=== PATIENT | female | born 1990 | race Caucasian/White ===

== ENCOUNTER 2019-10-25 19:08 | Observation (INO) | payer OTHER, SELFPAY ==
--- NOTE | 2019-10-25 19:00 | PC.NURSE ---
Report called to Sujata in OB. pt taken directly to ob via wc.
[2019-10-25 19:14] VITALS: TEMP 36.9
[2019-10-25 19:15] VITALS: BP 125/63; PULSE 90
[2019-10-25 19:44] LABS: Add Urine Microscopic? YES; Appearance Urine Cloudy (Clear); Bacteria Urine Trace /hpf; Bilirubin Urine Negative (Negative); Blood Urine Negative (Negative); Color Urine Yellow (Yellow); Glucose Urine UA Negative (Negative); Ketones Urine Negative (Negative); Leukocyte Esterase Ur 1+ LEU/UL (Negative); Mucus Urine Rare /lpf; Nitrate Urine Negative (Negative); Protein Urine Negative (Negative); RBC Urine 0-2 /hpf (0-2); Specific Grav Ur 1.011 (1.001-1.035); Squamous Epithelial Cell Urine Many /hpf (Few); Urobilinogen Urine Negative mg/dL (<2.0)
--- NOTE | 2019-11-03 01:49 | PM.OBTRLD ---
OB - Triage/Final Diagnosis Evaluation Laboratory results: Laboratory Tests 10/25/19 19:26 Urine Color Yellow Urine Appearance Cloudy H Urine pH 6.0 Ur Specific [place] 1.011 Urine Protein Negative Urine Glucose (UA) Negative Urine Ketones Negative Ur Blood (Man) Negative Urine Nitrate Negative Urine Bilirubin Negative Urine Urobilinogen Negative Leukocyte Esterase Rfl 1+ H Urine RBC 0-2 Urine WBC 10-15 H Ur Squamous Epith Cells Many H Urine Bacteria Trace Urine Mucus Rare Final Diagnosis (1) Abdominal cramping affecting : Code(s): O26.899 - Other specified related conditions, unspecified trimester; R10.9 - Unspecified abdominal pain Status: Acute
== END 2019-10-25 20:25 | disposition home or self-care (01) ==
PROVIDERS: Admitting Provider Student in an Organized Health Care Education/Training Program; Visit Provider Student in an Organized Health Care Education/Training Program
DX: O26.893 Other specified pregnancy related conditions, third trimester (principal); R10.9 Unspecified abdominal pain; Z3A.28 28 weeks gestation of pregnancy
CPT/HCPCS: 81001; 87086; 87088; G0378; G0379

== ENCOUNTER 2019-11-15 09:49 | Outpatient (RCR) | payer OTHER, SELFPAY ==
--- NOTE | ~2019-11-15 | US_ITS ---
EXAMINATION: US OB limited w BPP DATE: 11/15/2019 11:07 INDICATION: Decreased movement. Third trimester. TECHNIQUE: Real-time pelvic ultrasound was performed. COMPARISON: None. FINDINGS: There is a single living fetus in vertex presentation. The placenta is anterior. heart rate is 143 beats per minute (bpm). The amniotic fluid index is 20.3 cm, which is normal. Biophysical profile performed by the technologist: breathing (30 sec sustained breathing in 30 minutes): 2 out of 2 movement (3 gross body movements in 30 minutes): 2 out of 2 tone (one episode of graueyc-juuwpoiaa-jmgqowe limb movement): 2 out of 2 Amniotic fluid pocket (2 cm): 2 out of 2 Total score: 8 out of 8 IMPRESSION: 1. Single living fetus in vertex presentation. 2. Biophysical profile 8 out of 8. Reviewed, dictated and finalized at location A. 7 DEVELOPER
[2019-11-15 10:45] VITALS: BP 105/55; PULSE 79
== END 2020-02-13 23:59 | disposition home or self-care (01) ==
LOC: ANHOBOP 09:49
PROVIDERS: Visit Provider Obstetrics & Gynecology
DX: O36.8130 Decreased fetal movements, third trimester, not applicable or unspecified (principal); Z3A.31 31 weeks gestation of pregnancy
CPT/HCPCS: 59025; 76815; 76819

== ENCOUNTER 2020-01-03 11:11 | Outpatient (CLI) | payer OTHER, SELFPAY ==
--- NOTE | ~2020-01-03 | US_ITS ---
EXAMINATION: US OB follow up DATE: 01/03/2020 11:49 INDICATION: Size greater than dates during third trimester TECHNIQUE: Real-time ultrasound of the pelvis was performed. The interpreting radiologist was not pre sent for the study. COMPARISON: None. FINDINGS: There is a single living fetus in breech presentation. The placenta is anterior. card iac activity and movement are noted. heart rate is 124 beats per minute (bpm). The amniot ic fluid index is 24.1 cm which is normal. The following biometric data were obtained: Biparietal diameter (BPD): 9.3 cm; head circumference (HC): 33.3 cm; abdominal circumference (AC): 33 .7 cm; femur length (FL): 7.3 cm. These measurements are concordant. Estimated weight is 3274 g +/- 491 g, which correlates with the 74th percentile when 01/24/2020 is used as estimated date of delivery. As single measurements, these parameters are each equal to the following estimated gestational ages w ith ranges of +/- 2 standard deviations: BPD: 38 weeks 0 days +/- 3 weeks 1 days. HC: 38 weeks 1 days +/- 2 weeks 5 days. AC: 37 weeks 4 days +/- 3 weeks 0 days. FL: 37 weeks 3 days +/- 3 weeks 1 days. estimated gestational age based solely on measurements from this exam is 37 weeks 6 days +/- 2 weeks 5 days. IMPRESSION: 1. Single living fetus in breech presentation. 2. Estimated weight is 3274 g +/- 491 g, which correlates with the 74th percentile when 01/24/20 20 is used as estimated date of delivery. 3. Normal amniotic fluid index. Reviewed, dictated and finalized at location A. IMPRESSION: 1. Single living fetus in breech presentation. 2. Estimated weight is 3274 g +/- 491 g, which correlates with the 74th p ercentile when 01/24/2020 is used as estimated date of delivery. 3. Normal amniotic fluid index.
[2020-01-03 11:58] LABS: Basophils Percent Auto 0.2 % (0.2-1.2); Eosinophils Absolute Auto 0.2 K/mm3 (0-0.3); Eosinophils Percent Auto 1.6 % (0-4.4); Hemoglobin 10.5 g/dL (12.0-15.0); Immature Granulocyte Absolute 0.05 K/mm3 (0.00-0.031); Immature Granulocyte Percent A 0.5 % (0-0.5); Lymphocytes Absolute Auto 2.01 K/mm3 (0.9-3.2); Lymphocytes Percent Auto 20.8 % (18.3-44.2); Mean Corpuscular HGB Conc 32.8 g/dl (32-36); Mean Corpuscular Hemoglobin 31.9 pg (26-34); Mean Corpuscular Volume 97.3 fl (80-100); Mean Platelet Volume 11.3 fl (7.4-10.4); Monocytes Absolute Auto 0.8 K/mm3 (0.1-0.6); Monocytes Percent Auto 7.9 % (2.6-8.5); Neutrophils Absolute Auto 6.7 K/mm3 (1.3-6.7); Platelet Count Result 174 k/mm3 (150-375); Red Blood Count 3.29 M/mm3 (4.2-5.4); Red Cell Distribution Width 13.6 % (11.5-14.5); White Blood Count 9.7 K/mm3 (4.5-10.0)
[2020-01-03 12:51] LABS: HIV 1/2 Ab P24 Ag Result Negative (Negative)
[2020-01-04 10:10] LABS: Rapid Plasma Reagin Non-Reactive (NonReactive)
== END 2020-01-03 11:12 | disposition home or self-care (01) ==
LOC: ANHIMG 11:18
PROVIDERS: Visit Provider Obstetrics & Gynecology
DX: Z34.90 Encounter for supervision of normal pregnancy, unspecified, unspecified trimester (principal)
CPT/HCPCS: 36415; 76816; 85025; 86592; 86703; G0432

== ENCOUNTER 2020-01-17 18:54 | Inpatient (IN) | payer OTHER, SELFPAY ==
[2020-01-17] VITALS (11 sets, daily range): BP systolic 92–129; BP diastolic 45–70; PULSE 97–110; TEMP 36.7; BMI 34.1
--- NOTE | 2020-01-17 19:32 | LDADM ---
This patient, Gwen Kincaid, was admitted to Labor/Delivery/Recovery 108 on 01/17/20 at 18:54. Plans for labor, pain management and were discussed with patient. Patient/family oriented to hospital policies and general routines including ID bracelet, bed and alarms, visiting hours, pain management, procedures, bathroom and other care routines, personal items, smoking policy, room service/diet and guest tray routines, security routines, and visiting hours. Patient/Family are encouraged to report perceived risks to care and to ask questions if they do not understand what they are told or what they should do. See OBIX for further documentation.
[2020-01-17 19:33] LABS: Basophils Percent Auto 0.1 % (0.2-1.2); Eosinophils Absolute Auto 0.2 K/mm3 (0-0.3); Eosinophils Percent Auto 1.8 % (0-4.4); Hematocrit 30.8 % (37.0-47.0); Hemoglobin 10.2 g/dL (12.0-15.0); Immature Granulocyte Absolute 0.04 K/mm3 (0.00-0.031); Immature Granulocyte Percent A 0.4 % (0-0.5); Lymphocytes Absolute Auto 2.07 K/mm3 (0.9-3.2); Lymphocytes Percent Auto 21.9 % (18.3-44.2); Mean Corpuscular HGB Conc 33.1 g/dl (32-36); Mean Corpuscular Hemoglobin 31.9 pg (26-34); Mean Corpuscular Volume 96.3 fl (80-100); Mean Platelet Volume 11.6 fl (7.4-10.4); Monocytes Absolute Auto 0.7 K/mm3 (0.1-0.6); Monocytes Percent Auto 7.2 % (2.6-8.5); Neutrophils Absolute Auto 6.5 K/mm3 (1.3-6.7); Neutrophils Percent Auto 68.6 % (45.5-73.1); Platelet Count Result 176 k/mm3 (150-375); Red Cell Distribution Width 13.8 % (11.5-14.5); White Blood Count 9.5 K/mm3 (4.5-10.0)
[2020-01-17] MEDS: DINOPROSTONE 10 MG VAG INSERT VAGINAL (19:43)
[2020-01-17 20:25] LABS: HIV 1/2 Ab P24 Ag Result Negative (Negative)
--- NOTE | 2020-01-17 21:19 | WPDANESEPP ---
Anes - Eval Pre Procedure Procedure: labor epidural Date/Time: 01/17/20 21:19 Surgeon: labor pain Pre Op Diagnosis: IOL Patient Data Age: 29 Gender: F Height: 1.55 m Weight: 82 kg Last Vital Signs Temp 36.7 C 01/17/20 19:18 Pulse 99 01/17/20 21:14 BP 99/45 L 01/17/20 21:14 Allergies Allergy/AdvReac Type Severity Reaction Status Date / Time HYDROCODONE BIT AdvReac Unknown Nausea and Uncoded 08/18/14 09:37 Vomiting Home Medications Medication Instructions Recorded Confirmed Type docosahexaenoic acid 200 mg capsule 1 mg PO DAILY 07/19/19 01/17/20 History ferrous sulfate 325 mg (65 mg 325 mg PO DAILY #30 tablet 10/22/19 01/17/20 Rx iron) tablet Laboratory Tests 01/17/20 01/17/20 01/17/20 19:28 19:28 19:28 WBC 9.5 K/mm3 K/mm3 (4.5-10.0) RBC 3.20 M/mm3 L M/mm3 (4.2-5.4) Hgb 10.2 g/dL L g/dL (12.0-15.0) Hct 30.8 % L % (37.0-47.0) MCV 96.3 fl fl (80-100) MCH 31.9 pg pg (26-34) MCHC 33.1 g/dl g/dl (32-36) RDW 13.8 % % (11.5-14.5) Plt Count 176 k/mm3 k/mm3 (150-375) MPV 11.6 fl H fl (7.4-10.4) Immature Gran % (Auto) 0.4 % % (0-0.5) Neut % (Auto) 68.6 % % (45.5-73.1) Lymph % (Auto) 21.9 % % (18.3-44.2) [place] % (Auto) 7.2 % % (2.6-8.5) Eos % (Auto) 1.8 % % (0-4.4) Baso % (Auto) 0.1 % L % (0.2-1.2) Lymph # (Auto) 2.07 K/mm3 K/mm3 (0.9-3.2) [place] # (Auto) 0.7 K/mm3 H K/mm3 (0.1-0.6) Eos # (Auto) 0.2 K/mm3 K/mm3 (0-0.3) Baso # (Auto) 0.0 K/mm3 K/mm3 (0.0-0.1) Abs Immat Gran (auto) 0.04 K/mm3 H K/mm3 (0.00-0.031) Absolute Neuts (auto) 6.5 K/mm3 K/mm3 (1.3-6.7) Absolute Nucleated RBC 0.0 K/mm3 K/mm3 (0.0-0.012) Nucleated RBC % 0.0 % % (0.0-0.2) RPR Pending HIV 1&2 Ab/P24 Ag 4thGn Negative (Negative) Blood Type Antibody Screen 01/17/20 19:28 WBC RBC Hgb Hct MCV MCH MCHC RDW Plt Count MPV Immature Gran % (Auto) Neut % (Auto) Lymph % (Auto) [place] % (Auto) Eos % (Auto) Baso % (Auto) Lymph # (Auto) [place] # (Auto) Eos # (Auto) Baso # (Auto) Abs Immat Gran (auto) Absolute Neuts (auto) Absolute Nucleated RBC Nucleated RBC % RPR HIV 1&2 Ab/P24 Ag 4thGn Blood Type Pending Antibody Screen Pending Patient hx anesthesia problems: none Family hx anesthesia problems: none PMFSH Social History Social History Smoking packs per day: 0.5 Smoking cigarettes per day: 10.0 Years smoked: 8 Smoking pack-years: 4.00 Smoking status: Never smoker Tobacco type: cigarettes Second hand tobacco smoke exposure: Yes Alcohol intake: former Substance use: former Substance use type: marijuana Last use: When she found out she was Gender identity (if verbalized by the patient): Female Spiritual care concerns: No Exam Day of Procedure 01/17/20 21:19
[2020-01-17] MEDS: ZOLPIDEM TARTRATE 5 MG TABLET PO (21:41)
[2020-01-18] VITALS (116 sets, daily range): BP systolic 76–136; BP diastolic 44–89; PULSE 65–119; TEMP 36.7–37; O2SAT 93–100
[2020-01-18 06:58] LABS: Rapid Plasma Reagin Non-Reactive (NonReactive)
[2020-01-18] MEDS: OXYTOCIN 30 UNITS/NS 500 ML 30 UNITS/500 ML BAG IV CONT (08:43)
[2020-01-18] MEDS: LACTATED RINGERS 1,000 ML 125 ML IV CONT ×5 (08:43→23:43)
--- NOTE | 2020-01-18 13:12 | PM.IMHP ---
H&P: HPI History of Present Illness Chief complaint: IOL Narrative: Gwen Kincaid is a 29 year old female at 39 weeks by LMP 04/19/19 with an EDC 01/24/20. c/w U/S on 06/23/19 at 9 weeks. course signficant for unstable lie, fetus was breech last week and cephalic yesterday. course also signficant for tobacco use. She did decrease to approximately 5 cigs/day. History of marijuana use in past not during .UDS neg in . Anemia of Labs: A+, TSH-nl, UDS-neg,CF-neg, RPR-nr,RUB-Im, VitD 30, Hepbsag-neg, Hemoglobinopathy screen normal, HepCab-neg, GC/CHL-neg, 1 hr-111, third tri hiv/rpr neg, third trimester h/h1 Review of Systems Review of Systems: All systems reviewed & are unremarkable except as noted in HPI and below Constitutional: Constitutional: Reports no additional constitutional complaints and Denies headache(s) Eyes: Eyes: Denies spots in vision ENT: Reports system reviewed and no additional complaints, except as documented and Denies headache(s) Cardiovascular: Cardiovascular: Denies chest pain and Denies dyspnea Respiratory: Respiratory: Denies dyspnea Gastrointestinal: Gastrointestinal: Reports no additional gastrointestinal complaints Genitourinary: Genitourinary: Reports amenorrhea Musculoskeletal: Musculoskeletal: Reports no additional musculoskeletal complaints Integumentary/Breasts: Skin/Breast: Denies breast mass and Denies rash Neurologic: Denies headache(s) Psychiatric: Psychiatric: Reports no additional psychiatric complaints [facility] Past Medical History Medical History (Updated 01/18/20 @ 13:13 by Kendall Somers MD) Elective induction of labor planned Encounter for supervision of other normal , third trimester Normal in multigravida in second trimester Family History Family History Grandparent Carcinoma of colon Social History Social History Smoking packs per day: 0.5 Smoking cigarettes per day: 10.0 Years smoked: 8 Smoking pack-years: 4.00 Smoking status: Never smoker Tobacco type: cigarettes Second hand tobacco smoke exposure: Yes Alcohol intake: former Substance use: former Substance use type: marijuana Last use: When she found out she was Gender identity (if verbalized by the patient): Female Spiritual care concerns: No Meds Home Medications and Allergies Home Medications Medication Instructions Recorded Confirmed Type docosahexaenoic acid 200 mg capsule 1 mg PO DAILY 07/19/19 01/17/20 History ferrous sulfate 325 mg (65 mg 325 mg PO DAILY #30 tablet 10/22/19 01/17/20 Rx iron) tablet Allergies Allergy/AdvReac Type Severity Reaction Status Date / Time HYDROCODONE BIT AdvReac Unknown Nausea and Uncoded 08/18/14 09:37 Vomiting Vital Signs Vital Signs - 24 hr 01/17/20 19:18 01/17/20 19:22 01/17/20 19:29 Temperature 98.1 F Pulse Rate 101 H 99 Blood Pressure 129/68 115/63 01/17/20 19:44 01/17/20 19:59 01/17/20 20:15 Temperature Pulse Rate 103 H 100 97 Blood Pressure 122/70 113/68 98/53 L 01/17/20 20:29 01/17/20 20:45 01/17/20 20:59 Temperature Pulse Rate 106 H 110 H 102 H Blood Pressure 98/57 L 94/52 L 99/45 L 01/17/20 21:14 01/17/20 21:29 01/18/20 01:05 Temperature Pulse Rate 99 107 H 119 H Blood Pressure 99/45 L 92/59 L 116/59 L 01/18/20 01:15 01/18/20 04:30 01/18/20 05:30 Temperature 98.4 F Pulse Rate 106 H 102 H Blood Pressure 96/80 L 115/55 L 01/18/20 05:31 01/18/20 05:45 01/18/20 05:53 Temperature Pulse Rate 86 78 99 Blood Pressure 102/48 L 108/49 L 118/60 01/18/20 06:00 01/18/20 06:15 01/18/20 06:30 Temperature Pulse Rate 80 88 80 Blood Pressure 121/66 98/61 L 120/76 01/18/20 06:45 01/18/20 07:00 01/18/20 07:15 Temperature Pulse Rate 82 88 84 Blood Press
--- NOTE | 2020-01-18 13:14 | PM.OBPNVD ---
OB - PN: Subj Subjective Date/time seen: 01/18/20 0820 FHt 130 Cat 1 Cervix 1.5/50/high Bedside ultrasound confirmed cephalic. Start Pitocin. OB - PN: Obj Data Labs CBC & Chem 7: 01/17/20 19:28 Labs: Laboratory Results - last 24 hr 01/17/20 01/17/20 01/17/20 19:28 19:28 19:28 WBC 9.5 RBC 3.20 L Hgb 10.2 L Hct 30.8 L MCV 96.3 MCH 31.9 MCHC 33.1 RDW 13.8 Plt Count 176 MPV 11.6 H Immature Gran % (Auto) 0.4 Neut % (Auto) 68.6 Lymph % (Auto) 21.9 [place] % (Auto) 7.2 Eos % (Auto) 1.8 Baso % (Auto) 0.1 L Lymph # (Auto) 2.07 [place] # (Auto) 0.7 H Eos # (Auto) 0.2 Baso # (Auto) 0.0 Abs Immat Gran (auto) 0.04 H Absolute Neuts (auto) 6.5 Absolute Nucleated RBC 0.0 Nucleated RBC % 0.0 RPR Non-reactive HIV 1&2 Ab/P24 Ag 4thGn Negative Blood Type Antibody Screen 01/17/20 19:28 WBC RBC Hgb Hct MCV MCH MCHC RDW Plt Count MPV Immature Gran % (Auto) Neut % (Auto) Lymph % (Auto) [place] % (Auto) Eos % (Auto) Baso % (Auto) Lymph # (Auto) [place] # (Auto) Eos # (Auto) Baso # (Auto) Abs Immat Gran (auto) Absolute Neuts (auto) Absolute Nucleated RBC Nucleated RBC % RPR HIV 1&2 Ab/P24 Ag 4thGn Blood Type A Positive Antibody Screen Negative OB - PN A/P Time Spent With Patient Time: Total time spent is greater than 50% in coordination of care (as documented) at patient's floor/unit and/or counseling patient:
--- NOTE | 2020-01-18 13:16 | PM.OBPNVD ---
OB - PN: Subj Subjective Date/time seen: 01/18/20 13:16 FHT 145 Cat 1 Cervix 2/50/-2. Ctx feeling more uncomfortable, ctx q 2-3. Pt did not tolerate attempt AROM. Continue Pitocin induction. OB - PN: Obj Data Labs CBC & Chem 7: 01/17/20 19:28 Labs: Laboratory Results - last 24 hr 01/17/20 01/17/20 01/17/20 19:28 19:28 19:28 WBC 9.5 RBC 3.20 L Hgb 10.2 L Hct 30.8 L MCV 96.3 MCH 31.9 MCHC 33.1 RDW 13.8 Plt Count 176 MPV 11.6 H Immature Gran % (Auto) 0.4 Neut % (Auto) 68.6 Lymph % (Auto) 21.9 [place] % (Auto) 7.2 Eos % (Auto) 1.8 Baso % (Auto) 0.1 L Lymph # (Auto) 2.07 [place] # (Auto) 0.7 H Eos # (Auto) 0.2 Baso # (Auto) 0.0 Abs Immat Gran (auto) 0.04 H Absolute Neuts (auto) 6.5 Absolute Nucleated RBC 0.0 Nucleated RBC % 0.0 RPR Non-reactive HIV 1&2 Ab/P24 Ag 4thGn Negative Blood Type Antibody Screen 01/17/20 19:28 WBC RBC Hgb Hct MCV MCH MCHC RDW Plt Count MPV Immature Gran % (Auto) Neut % (Auto) Lymph % (Auto) [place] % (Auto) Eos % (Auto) Baso % (Auto) Lymph # (Auto) [place] # (Auto) Eos # (Auto) Baso # (Auto) Abs Immat Gran (auto) Absolute Neuts (auto) Absolute Nucleated RBC Nucleated RBC % RPR HIV 1&2 Ab/P24 Ag 4thGn Blood Type A Positive Antibody Screen Negative OB - PN A/P Time Spent With Patient Time: Total time spent is greater than 50% in coordination of care (as documented) at patient's floor/unit and/or counseling patient:
--- NOTE | 2020-01-18 21:16 | PM.OBPNVD ---
OB - PN: Subj Subjective Date/time seen: 01/18/20 21:16 fht 130, Cat 1, cervix 3/60/-2, AROM large amount of clear fluid Continue Pitocin. OB - PN: Obj Data Labs CBC & Chem 7: 01/17/20 19:28 Labs: Laboratory Results - last 24 hr 01/17/20 01/17/20 19:28 19:28 RPR Non-reactive Blood Type A Positive Antibody Screen Negative OB - PN A/P Time Spent With Patient Time: Total time spent is greater than 50% in coordination of care (as documented) at patient's floor/unit and/or counseling patient:
[2020-01-19] VITALS (134 sets, daily range): BP systolic 91–139; BP diastolic 47–88; PULSE 64–127; RESP 18; TEMP 36.6–37.7; O2SAT 92–100
[2020-01-19] MEDS: ONDANSETRON INJ 4 MG/2 ML VIAL IV PUSH (06:30)
--- NOTE | 2020-01-19 07:30 | PM.OBPNVD ---
OB - PN: Subj Subjective Date/time seen: 01/19/20 07:30 Called for delivery at 644. Review of tracing showed, early decel since 539, cervix at that time 9/rim,-1, mild late decelerations since 609. Good variability present. Complete at 0658. OB - PN: Obj Data Labs CBC & Chem 7: 01/17/20 19:28 OB - PN A/P Time Spent With Patient Time: Total time spent is greater than 50% in coordination of care (as documented) at patient's floor/unit and/or counseling patient:
--- NOTE | 2020-01-19 07:34 | PM.OBPRVD ---
OB - Delivery Note Procedure Delivery date: 01/19/20 Procedure: Spontaneous vaginal delivery events: Labor Induction Intrapartal events: Deceleration Induction method: per misoprostol protocol and per pitocin protocol Delivery augmentation: rupture of membranes Delivery monitor: external FHT Route of delivery: Laceration description: None Specimen: Yes Estimated blood loss (mL): 150 Anesthesia type: Epidural Disposition: floor Complications: None Narrative: Patient admitted for social induction. She also had unstable presentation. Tobacco abuse. She had cervidil on evening of 01/16. Pitocin was started morning of 01/17. She had rupture of membranes at approximately 0 clear. Large amount of clear fluid. She progressed into active labor. Labor course tracing Cat 1 until approximately 0615. Cat 2 with mild late decelerations repetitive. Position was changed and she was complete at 0658. She delivered a male at 0717. placed on maternal abdomen after tight nuchal cord surgically reduced. Infant then brought to warmer. Placenta delivered spontaneously and intact. No lacerations. Cord gases and cord blood obtained. Baby Date of : 01/19/20 Time of : 07:17 Weeks of gestation at delivery: 39 gender: Male Weight (pounds): 7 Weight (ounces): 2 presentation: vertex position: Right Occiput Anterior Placenta delivery description: Spontaneous cord vessel description: Tight and Reduced (surgically) score one minute: 7 score five minutes: 9
[2020-01-19] MEDS: IBUPROFEN 600 MG TABLET PO ×3 (08:54→21:16)
[2020-01-19] MEDS: BENZOCAINE 20% AER SPR (*SP) 56 GM CAN 1 SPRAY TOPICAL (08:54)
[2020-01-19] MEDS: WITCH HAZEL 40 PADS 1 PAD TOPICAL (08:54)
--- NOTE | 2020-01-19 10:35 | PC.NURSE ---
Patient transferred to post room # 287 per wheelchair. Support person present. Oriented to unit, room, information board, rooming in, admission packet and security measures. Patient verbalizes understanding.
[2020-01-20 05:33] LABS: Hematocrit 25.3 % (37.0-47.0); Hemoglobin 8.4 g/dL (12.0-15.0)
[2020-01-20 08:00] VITALS: BP 106/66; PULSE 77; RESP 18; TEMP 36.8
[2020-01-20] MEDS: IBUPROFEN 600 MG TABLET PO (08:27)
[2020-01-20] MEDS: POLYSACCHARIDE IRON COMPLEX 150 MG CAPSULE PO (08:28)
[2020-01-20] MEDS: DOCUSATE SODIUM 100 MG CAPSULE PO (08:28)
--- NOTE | 2020-01-20 09:37 | PC.NURSE ---
Patient was given the opportunity to view the discharge video Mother & Baby Care, The First Two Weeks and to ask questions. Patient declined viewing the video and has been given the mother/baby guide for home reference.
--- NOTE | 2020-01-20 09:37 | PC.NURSE ---
Self care and infant care discharge instructions given to pt. including follow up visit date and time. Pt. verbalized understanding. No questions or concerns voiced.
--- NOTE | 2020-01-20 11:27 | PM.OBPNVD ---
OB - PN: Subj Subjective Date/time seen: 01/20/20 11:27 No lightheadedness or dizziness. Patient comments: pain well controlled, tolerating diet and other (Decreasing lochia.) [place] baby status: doing well and nursing well OB - PN: Obj Data Labs CBC & Chem 7: 01/20/20 04:44 Labs: Laboratory Results - last 24 hr 01/20/20 04:44 Hgb 8.4 L Hct 25.3 L OB - PN A/P Plan day: 1 Plan: routine care Comments: Patient doing well. She desires to go home. Discharge precautions discussed. Time Spent With Patient Time: Total time spent is greater than 50% in coordination of care (as documented) at patient's floor/unit and/or counseling patient: Exam Psych: Affect: normal affect Other: Abd: fundus firm below umbilicus, nontender Perineum: healing Ext: nontender
[2020-01-21 10:04] VITALS: BP 117/74; PULSE 83; RESP 20; TEMP 36.9; O2SAT 99
--- NOTE | 2020-02-18 12:11 | PM.OBDSVD ---
DS: Admitting Diagnosis Admitting Diagnosis Admitting Diagnosis: Encounter for supervision of normal , unspecified, third trimester DS: Discharge Diagnosis Discharge Diagnosis (1) Elective induction of labor planned: Status: Acute OB - DS: Summary OB Procedures : None OB Procedures Intrapartum: Spontaneous Vag Delivery OB Procedures: : None Time Spent with Patient Time attestation: Total time spent providing and/or coordinating discharge services: Exam Psych: Affect: normal affect Other: Abd: fundus firm below umbilicus, nontender Perineum: healing Ext: nontender DS: Data Data Completed and Pending Completed studies during hospitalization: Pending at discharge 01/19/20 13:48 Surgical [PTH] Routine Discharge Plan Discharge Attending physician on discharge: Kendall Somers Discharging Clinician: Kendall Somers Patient Disposition: Home, Self-Care Activity: may shower and pelvic rest Diet: regular Discharge Instructions: Routine post vaginal delivery instructions. May take over the counter Ibuprofen or Tylenol for pain. Call for temperature >100.4, saturating more than one pad an hour, leg pain and redness. Take daily vitamin and take a daily iron supplement. Education: Mom and Baby Guide Given to: Mother Follow-Up: Call your delivering provider's office for an appointment to be seen in: 6 Weeks Mom and baby should come to the [facility] for the follow-up appointment. Appointment Date/Time: January 21, 2020 at 10:00 am What to expect at your follow-up visit: Blood Pressure Check Physical Assessment Call [phone] if you are unable to keep your appointment time. BREAST CARE: 1. Wear a snug supportive bra. Bottle Feeding: A. May apply ice packs EPISIOTOMY/PERINEAL CARE: 1. Until bleeding stops, use your rajendra bottle after urinating 2. Change your pad frequently throughout the day 3. You may take sitz baths several times a day (fill your bathtub with warm water and soak for 20 minutes.) Do NOT bathe in the water 4. No tub baths until seen by your physician - You may shower ACTIVITY: 1. Rest as much as possible. 2. Do not exercise or lift anything heavier than your baby (such as laundry or other children.) 3. Avoid stairs or driving as much as possible. 4. Do not put anything into the vagina. No douching, tampons, or sexual activity until seen by physician. NOTIFY PHYSICIAN IF YOU HAVE ANY QUESTIONS OR IF ANY OF THE FOLLOWING SYMPTOMS OCCUR: 2. If your vaginal bleeding becomes foul smelling. 3. If your vaginal bleeding becomes more heavy than a period or if your bleeding changes from pink to bright red. However, you may pass an occasional walnut-sized clot once or twice for the first week . 4. If you experience a sharp, shooting pain in you calves. 5. If you discover a hard, reddened area on your breast or if you experience flu-like symptoms. DIET: 1. Eat regular, well-balanced meals. 2. Drink plenty of fluids daily. If , drink to thirst. Stand Alone Forms: General Discharge Information Follow-up/Referrals: Kendall Somers MD [Physician] - 4 Weeks (Call for appointment.) Discharge Medications: Continued DHA 200 mg capsule 1 mg PO DAILY RF: 0 ferrous sulfate 325 mg (65 mg iron) tablet 325 mg PO DAILY Qty: 30 RF: 2 Date of admission: 01/17/20 18:54 Primary Care Provider: PH[facility]IC[facility] Admitting Provider: Kendall Somers Discharge Date/Time: 01/20/20 12:17 Attending physician on admission: Kendall Somers
== END 2020-01-20 12:17 | disposition home or self-care (01) | DRG 560 ==
LOC: ANHLDR 19:20 → ANHOB2 01-19 10:39
PROVIDERS: Admitting Provider Obstetrics & Gynecology; Visit Provider Obstetrics & Gynecology
DX: O32.0XX0 Maternal care for unstable lie, not applicable or unspecified (principal); Z37.0 Single live birth; Z3A.39 39 weeks gestation of pregnancy; O99.02 Anemia complicating childbirth; D64.9 Anemia, unspecified; O99.334 Smoking (tobacco) complicating childbirth; F17.210 Nicotine dependence, cigarettes, uncomplicated; O36.8330 Maternal care for abnormalities of the fetal heart rate or rhythm, third trimester, not applicable or unspecified; O69.1XX0 Labor and delivery complicated by cord around neck, with compression, not applicable or unspecified
CPT/HCPCS: 36415; 85014; 85018; 85025; 86592; 86703; 86850; 86900; 86901; 88307; A9270; G0432; J2405; J2590; J2795; J7120

== ENCOUNTER 2020-04-03 00:53 | Outpatient (CLI) | payer OTHER, SELFPAY ==
[2020-04-03 19:20] LABS: SARS-CoV-2 RNA PCR Negative
== END 2020-04-03 00:54 | disposition home or self-care (01) ==
LOC: ANHCOVIDDT 00:53
PROVIDERS: Visit Provider Obstetrics & Gynecology
DX: Z01.812 Encounter for preprocedural laboratory examination (principal); Z11.59 Encounter for screening for other viral diseases
CPT/HCPCS: 87635; C9803; U0003

== ENCOUNTER 2020-04-05 02:51 | Day surgery (SDC) | payer OTHER, SELFPAY ==
[2020-03-23 10:03] VITALS: BMI 29.2
--- NOTE | 2020-04-04 17:24 | PM.IMHP ---
H&P: HPI History of Present Illness Chief complaint: Desires Sterilization Narrative: Gwen Kincaid is a 29 year old female Para 2 with satisfied parity and desires permanent sterilization. She has been counseled regarding risk of permanent sterilization to include permanence and risk of regret and risk of ectopic . She has been counseled on non permanent options and declines all other non permanent forms of contraception and declines option of partner having a vasectomy. She denies any pelvic pain. She has been counseled regarding the various sterilization techniques and risk and benefits of each and she desires to proceed with laparoscopic bilateral salpingectomy. Review of Systems Review of Systems: All systems reviewed & are unremarkable except as noted in HPI and below Constitutional: Constitutional: Reports no additional constitutional complaints Eyes: Eyes: Reports no additional eye complaints ENT: Reports Normal hearing present Cardiovascular: Cardiovascular: Denies chest pain and Denies dyspnea Respiratory: Respiratory: Reports no additional respiratory complaints, Reports cough, Denies dyspnea and Reports other Gastrointestinal: Gastrointestinal: Denies abdominal pain Genitourinary: Genitourinary: Reports no additional female genitourinary complaints, Reports as per HPI, Denies dyspareunia, Denies vaginal discharge, Denies vaginal dryness, Denies vaginal odor and Denies vaginal pruritus Integumentary/Breasts: Skin/Breast: Denies breast mass and Denies nipple discharge Neurologic: Reports Normal hearing present Psychiatric: Psychiatric: Reports no additional psychiatric complaints Endocrine: Endocrine: Reports no additional endocrine complaints Hematologic/Lymphatic: Hematologic/Lymphatic: Reports no additional hematologic/lymphatic complaints PMFSH Past Medical History Medical History Elective induction of labor planned Encounter for visit Encounter for supervision of other normal , third trimester Normal in multigravida in second trimester Family History Family History Grandparent Carcinoma of colon Social History Social History Smoking packs per day: 1 Smoking cigarettes per day: 20.0 Years smoked: 10 Smoking pack-years: 10.00 Smoking status: Current every day smoker Tobacco type: cigarettes Second hand tobacco smoke exposure: Yes Alcohol intake: current Drinks per week: 2 Substance use: former Substance use type: marijuana Last use: When she found out she was Gender identity (if verbalized by the patient): Female Spiritual care concerns: No Meds Home Medications and Allergies Home Medications Medication Instructions Recorded Confirmed Type multivitamin 1 tablet PO DAILY 03/23/20 03/23/20 History Allergies Allergy/AdvReac Type Severity Reaction Status Date / Time No Known Allergies Allergy Verified 03/28/20 10:54 Exam Const: General: healthy appearing, no acute distress, alert and awake Nutritional Appearance: well nourished Orientation/consciousness: oriented to person, oriented to place, oriented to time and patient oriented x3 Limitations: no limitations HENMT: Head: normal to inspection Eyes: General: appearance normal, both eyes and all related structures Neck: Neck: no lymphadenopathy and supple Resp: Effort & Inspection: normal respiratory effort and other Auscultation: clear to auscultation bilaterally Cardio: Rate: regular rate Rhythm: regular rhythm GI: Inspection: normal to inspection GI Palp: Yes No hepatosplenomegaly present Rectal Exam: visual inspection normal : External Female Exam: normal external appearance and normal appearance of the urethra Speculum Exam - Vagina: normal appearance of the vag
[2020-04-05] VITALS (8 sets, daily range): BP systolic 95–125; BP diastolic 66–84; PULSE 64–107; RESP 12–20; TEMP 35.9–37; O2SAT 90–100
[2020-04-05] MEDS: LACTATED RINGERS 1,000 ML 30 ML IV CONT (06:45)
[2020-04-05] MEDS: SCOPOLAMINE 1.5 MG PATCH TRANSDERM (07:00)
[2020-04-05] MEDS: ACETAMINOPHEN 500 MG TABLET 1000 MG PO (07:00)
--- NOTE | 2020-04-05 07:05 | WPDANESEPPF ---
Anes - Initial Pre Proc Eval Procedure: Operation Date: 04/05/20 07:30 Proposed Procedures p Laparoscopic Bilateral Salpingectomy - Kendall Somers MD Date/Time: 04/05/20 07:05 Surgeon: Kendall Somers MD Pre Op Diagnosis: Desires Sterilization Patient Data Age: 29 Gender: F Height: 5 ft 1 in Weight: 70.31 kg Allergies Allergy/AdvReac Type Severity Reaction Status Date / Time No Known Allergies Allergy Verified 03/28/20 10:54 Home Medications Medication Instructions Recorded Confirmed Type multivitamin 1 tablet PO DAILY 03/23/20 03/23/20 History Patient hx anesthesia problems: none Family hx anesthesia problems: none PMFSH Past Medical History Medical History Elective induction of labor planned Encounter for visit Encounter for supervision of other normal , third trimester Normal in multigravida in second trimester Family History Family History Grandparent Carcinoma of colon Social History Social History Smoking packs per day: 0.5 Smoking cigarettes per day: 10.0 Years smoked: 8 Smoking pack-years: 4.00 Smoking status: Never smoker Tobacco type: cigarettes Second hand tobacco smoke exposure: Yes Alcohol intake: former Drinks per week: 2 Substance use: former Substance use type: marijuana Last use: When she found out she was Living arrangements: with family Gender identity (if verbalized by the patient): Female Spiritual care concerns: No Anes - Eval Final PreProcedure Day of Procedure 04/05/20 07:05 Patient weight: overweight Heart: regular rate and rhythm Lungs: clear to auscultation Airway: Mallampati scale class II Neurological: alert and oriented Last oral intake: >/= 8 hours ASA classification: II Emergent: no Anesthetic plan: proceed Anesthesia type and monitoring: general ETT and standard monitoring Informed Consent: The patient's anesthetic plan and its attendant risks and benefits were discussed with the patient/family/POA. Questions were solicited and answers provided to the satisfaction of the patient/family/POA.
--- NOTE | 2020-04-05 07:07 | WPDHPUPDATE1 ---
History and Physical Update Update Date/Time: 04/05/20 07:07 History and Physical has been reviewed, including an updated exam of the patient. There are NO changes in the patient's condition. Risks, benefits, and alternatives have been discussed and questions answered. Patient agrees to proceed with procedure.
[2020-04-05] MEDS: KETOROLAC 15 MG/ML VIAL (*BKC) IV PUSH (07:45)
--- NOTE | 2020-04-05 08:12 | SUR.OPER ---
EBL:20cc
--- NOTE | 2020-04-05 08:16 | P.OP_ITS ---
Procedure Note - Detailed Date of procedure: 04/05/20 Pre-op diagnosis: Desires Sterilization Post-op diagnosis: same Procedure performed: Laparoscopic bilateral salpingectomy Description of procedure: After informed consent was obtained patient was taken to the operating room and general endotracheal anesthesia was administered. She was placed in low lithotomy and prepped and draped in sterile fashion. Attention was turned to the vagina speculum inserted single-tooth tenaculum placed on anterior lip of the cervix. [place] uterine manipulator placed into the cervical canal. The speculum was removed. Attention was then turned to the a bdomen. With sterile gloves a vertical incision was made at the umbilicus and a Veress needle was inserted into the abdomen confirmation into the abdomen obtained with free flow of fluid and normal peritoneal pressures. A pneumoperitoneum of 15 mm per mercury was obtained. The 5 mm port was inserted under laparoscopic visualization. Patient was placed in Trendelenburg position. Attention was turned to the left side of the abdomen and a 5 mm port was inserted under laparoscopic visualization. The pelvic organs were visualized. Attention was turned to the right side of the abdomen and another 5 mm port was inserted under laparoscopic visualization. Using the LigaSure the right fallopian tube was excised to near the entrance to the uterus. This was removed through the port. Attention was then turned to the left fallopian tube which was grabbed at the distal end and cauterized with Ligasure from the mesial salpinx to near entrance to the entrance to the uterus. The fallopian tube was removed through the 5 mm port. Hemostasis was noted at both sites. Patient was taken out of Trendelenburg position the pneumoperitoneum was released and the skin incisions were closed in a subcuticular fashion with 4 O Vicryl. 8cc of 0.5% marcaine was injected subcutaneously at incision sites. She did sustain a laceration on the anterior cervix at tenaculum site and hemostasis was obtained with figure of eight stitch of O vicryl. Sponge count correct. Patient tolerated procedure well. She was extubated in OR and take to recovery room. Anesthesia: GETA Surgeon: Kendall Somers MD Estimated blood loss (mL): 10 Drains: No Packing: No Pathology: yes (Right and left fallopian tubes) Complications: No immediate complications Condition: stable Disposition: PACU Findings: Normal appearing right and left fallopian tubes. Normal pelvis.
--- NOTE | 2020-04-05 09:58 | SUR.PHASEII ---
[id number] Called pt's sister Leena ([phone] ) She stated she will be here in an hour
== END 2020-04-05 10:40 | disposition home or self-care (01) ==
PROVIDERS: Visit Provider Obstetrics & Gynecology
PROC: (CPT 49320; principal; 2020-04-05 07:30)
DX: Z30.2 Encounter for sterilization (principal); F17.210 Nicotine dependence, cigarettes, uncomplicated
CPT/HCPCS: 58661; 88302; A9270; J0330; J1100; J1885; J2250; J2405; J2704; J3010; J7030; J7120